=== PATIENT | female | born 1975 | race Caucasian/White ===

== ENCOUNTER 2017-12-17 23:26 | Emergency (ER) | payer BC ==
[2017-12-17 23:59] VITALS: BP 142/79; PULSE 92; TEMP 97.9
--- NOTE | 2017-12-18 00:57 | PDOC ---
History of Present Illness - General Chief Complaint: Toothache Stated Complaint: RT FACIAL PAIN Time Seen by Provider: 12/18/17 00:07 History Source: Patient Exam Limitations: No Limitations - History of Present Illness Initial Comments: 12/18/17 00:51 This is a 42-year-old woman without significant past medical history presents emergency Department with pain to right upper molar for the past 7 days. Patient states she's been seen by organic gardening teacher and an general maintenance engineer and had multiple x-rays done and was prescribed amoxicillin. She did taking amoxicillin for 3 days but had minimal relief of pain. She denies any fevers, chills or foul taste in her mouth. Past History - Past Medical History Allergies/Adverse Reactions: Allergies Allergy/AdvReac Type Severity Reaction Status Date / Time No Known Allergies Allergy Verified 12/17/17 23:56 Home Medications: Ambulatory Orders Oxycodone HCl/Acetaminophen [Percocet 5-325 mg Tablet] 1 tab PO Q6H #8 tablet MDD 4 12/18/17 - Suicide/Smoking/Psychosocial Hx Smoking History: Never smoked Have you smoked in the past 12 months: No Information on smoking cessation initiated: No Hx Alcohol Use: No Drug/Substance Use Hx: No Review of Systems - Review of Systems Able to Perform ROS?: Yes Is the patient limited [place] proficient: No Constitutional: No: Symptoms Reported HEENTM: Yes: See HPI Respiratory: No: Symptoms reported Cardiac (ROS): No: Symptoms Reported ABD/GI: No: Symptoms Reported : No: Symptoms Reported Musculoskeletal: No: Symptoms Reported Integumentary: No: Symptoms Reported Neurological: No: Symptoms reported Endocrine: No: Symptoms Reported Hematologic/Lymphatic: No: Symptoms Reported *Physical Exam - Vital Signs Last Vital Signs Temp Pulse Resp BP Pulse Ox 97.9 F 92 H 20 142/79 99 12/17/17 23:56 12/17/17 23:56 12/17/17 23:56 12/17/17 23:56 12/17/17 23:56 - Physical Exam General Appearance: Yes: Appropriately Dressed. No: Apparent Distress HEENT: positive: EVIE, Normal ENT Inspection, Other (Dorothy noted to tooth #2. Tender to the buccal gingiva or tooth #2. No palpable abscess.). negative: Sinus Tenderness Neck: positive: Trachea midline, Supple Respiratory/Chest: positive: Lungs Clear, Normal Breath Sounds. negative: Respiratory Distress, Accessory Muscle Use Medical Decision Making - Medical Decision Making 12/18/17 00:54 A/P: 42-year-old woman with pain to tooth #2 No palpable abscess noted. Tender to the buccal surface of the gingiva at the base of tooth #2 Dorothy noted to affected tooth Superior alveolar block Discharge home with prescription for Percocet and follow-up with her dentist on Wednesday. *DC/Admit/Observation/Transfer Diagnosis at time of Disposition: Toothache - Discharge Dispostion Disposition: HOME Condition at time of disposition: Fair Decision to Admit order: No - Prescriptions Prescriptions: Oxycodone HCl/Acetaminophen [Percocet 5-325 mg Tablet] 1 tab PO Q6H #8 tablet MDD 4 - Referrals - Patient Instructions Printed Discharge Instructions: DI for Dental Pain Additional Instructions: Rest, drink lots of fluids: Teas, water, soups Saltwater gargles/ keep mouth clean and rinse after each meal May use wet teabag for pain relief to area Avoid hard chewing foods, stick to ice cream, Jell-O, yogurt etc. Tylenol or Motrin for fever and pain Take percocet 1 tablet every 6 hours as needed for severe pain Complete all medication as prescribed Call [facility] at [phone] Followup with private physician in one to 2 days as needed Return to emergency department for worsened symptoms, fevers, swelling to face or worsened pain - Post Discharge Activity
== END 2017-12-18 01:00 | disposition home or self-care (01) ==
LOC: JER 23:26
DX: K08.89 Other specified disorders of teeth and supporting structures (principal)
CPT/HCPCS: 99282-25